=== PATIENT | male | born 1945 | race Caucasian/White ===

== ENCOUNTER → 2016-11-21 | Outpatient (CLI) | payer MEDICARE, BC ==
[~2016-11-21] MED LIST: ADVIL200 MG PO; ASPIR-LOW81 MG PO; ASPIR-LOX325 MG PO; ASPIRIN 32325 MG/TAB PO; ASPIRIN E.C. 8181 MG PO; BENICAR40 MG PO; BETAPACE 120MG120 MG PO; CARAFATE 1GM1 G PO; CARAFATE PO; CARDIZEM CD 18180 MG PO; CARTIA XT120 MG PO; CENTRUM SILVER1 TA1 PO; COUMADIN 5MG5 MG/TAB PO; COUMADIN 77.5 MG/TAB PO; DUO-KAPS1 CAP PO; ELIQUIS 5MG PO; LEVOTHYROXIN0.088 MG PO; LEVOXYL0.088 MG PO; LISINOPRIL; LISINOPRIL5 MG PO; MAREPA1200 MG PO; METOPROLOL25 MG PO; METOPROLOL50 MG PO; MULTAQ400 MG PO; MULTIPLE VITAMI1 CAP PO; NEXIUM 20MG20 MG PO; NEXIUM 40MG40 MG PO; NEXIUM40 MG PO; NITROSTAT0.4 MG/TAB SL; NORVASC2.5 MG PO; OMEGA-3 FISH1200 MG PO; OMEPRAZOLE20 MG PO; PRIL40; PRILOSEC PO; PRILOTC PO; SOTALOL80 MG PO; TIKOSYN0.5 MG PO; TIROSINT88 MCG PO; TOPROL XL 50MG50 MG PO; TOPROL XL25 MG PO; VITAMIN C500 MG PO; VITAMIN D1000 IU PO; VITAMIN E100 I3 PO; VITAMIN E1000 U/CAP PO; VITAMIN E200 I1 PO; WARFARIN SOD5 MG PO; ZESTRIL 5MG5 MG PO; [UNRECOGNIZED DRUG - OTHER] OP
== END ==
LOC: COL.CARD 11-20 09:00
DX: R03.0 Elevated blood-pressure reading, without diagnosis of hypertension (principal)

== ENCOUNTER → 2017-05-06 | Outpatient (CLI) | payer MEDICARE, BC | LOC: COL.RAD 09:45 | DX: I77.810 Thoracic aortic ectasia (principal); R91.1 Solitary pulmonary nodule; M89.8X8 Other specified disorders of bone, other site | CPT/HCPCS: J7050; Q9967 ==

== ENCOUNTER → 2017-06-12 | Outpatient (CLI) | payer MEDICARE, BC ==
[2017-06-12 11:17] LABS: CALCIUM 9.4 mg/dL (8.4-10.2); CREATININE, serum 1.35 mg/dL (0.66-1.25); POTASSIUM 4.2 mmol/L (3.4-5.0)
== END ==
LOC: COL.LAB 10:09
PROVIDERS: Internal Medicine Cardiovascular Disease
DX: I48.91 Unspecified atrial fibrillation (principal)

== ENCOUNTER → 2017-09-03 | Outpatient (CLI) | payer MEDICARE, BC | LOC: COL.RAD 08:52 | DX: M89.9 Disorder of bone, unspecified (principal) | CPT/HCPCS: A9503 ==

== ENCOUNTER → 2017-10-11 | Outpatient (CLI) | payer MEDICARE, BC ==
[2017-10-11 12:25] LABS: CREATININE, serum 1.29 mg/dL (0.66-1.25); POTASSIUM 4.2 mmol/L (3.4-5.0)
== END ==
LOC: COL.LAB 11:50
PROVIDERS: Internal Medicine Cardiovascular Disease
DX: I48.91 Unspecified atrial fibrillation (principal)

== ENCOUNTER → 2018-06-24 | Outpatient (CLI) | payer MEDICARE, BC | LOC: COL.RAD 09:31 | DX: M54.9 Dorsalgia, unspecified (principal) | CPT/HCPCS: A9503 ==

== ENCOUNTER 2020-09-16 06:43 | Day surgery (SDC) | payer MEDICARE, BC ==
[~2020-09-16] VITALS: Ht 181.6 cm; Wt 78.7 kg
[2020-09-16 07:23] VITALS: BP 179/110; PULSE 77; TEMP 97.5
[2020-09-16] MEDS ORDERED: BYSTOLIC2.5 MG PO (07:33)
[2020-09-16] MEDS ORDERED: COZAAR 25MG25 MG/TAB PO (07:33)
[2020-09-16] MEDS ORDERED: ASPIRIN E.C. 8181 MG PO (07:34)
[2020-09-16] MEDS ORDERED: PROTONIX20 MG PO (07:35)
[2020-09-16] MEDS ORDERED: EYE MULTIVITAM1 EAC1 PO (07:37)
[2020-09-16] MEDS ORDERED: GLUCOSAMINE & C1 TAB PO (07:38)
--- NOTE | 2020-09-16 07:41 | NUR ---
TO [facility] 2 AT 0655- CALL LIGHT IN REACH
[2020-09-16 08:35] VITALS: BP 126/80; PULSE 64; TEMP 97.5
--- NOTE | 2020-09-16 08:35 | NUR ---
pt to [facility] via cart from endo lab, walked to chair, gait stable, in room, call light in reach. No c/o
[2020-09-16 08:50] VITALS: BP 132/100; PULSE 66
[2020-09-16 09:10] VITALS: BP 140/99; PULSE 61
--- NOTE | 2020-09-16 09:10 | NUR ---
in earlier to see pt, IV dc'd intact. reviewed discharge inst. with pt on activity, precautions and followup with verbal understanding.
--- NOTE | 2020-09-16 09:20 | NUR ---
pt up in room dressed, no c/o, discharged via w/c to car with
== END 2020-09-16 09:20 | disposition home or self-care (01) ==
LOC: SDCO 06:43
DX: Z12.11 Encounter for screening for malignant neoplasm of colon (principal); K62.1 Rectal polyp; K57.30 Diverticulosis of large intestine without perforation or abscess without bleeding; Z90.79 Acquired absence of other genital organ(s); I10 Essential (primary) hypertension; I48.91 Unspecified atrial fibrillation; K21.9 Gastro-esophageal reflux disease without esophagitis; Z87.891 Personal history of nicotine dependence; Z85.828 Personal history of other malignant neoplasm of skin; Z20.822 Contact with and (suspected) exposure to COVID-19; Z85.46 Personal history of malignant neoplasm of prostate
CPT/HCPCS: J0360; J2704; J7030

== ENCOUNTER → 2020-10-04 | Outpatient (CLI) | payer MEDICARE, BC ==
[~2020-10-04] MED LIST changes: +BYSTOLIC2.5 MG PO; +COZAAR 25MG25 MG/TAB PO; +EYE MULTIVITAM1 EAC1 PO; +GLUCOSAMINE & C1 TAB PO; +PROTONIX20 MG PO
== END ==
LOC: COL.RAD 12:13
DX: E04.1 Nontoxic single thyroid nodule (principal)

== ENCOUNTER → 2020-11-09 | Outpatient (CLI) | payer MEDICARE, BC | LOC: COL.LAB 08:39 | DX: N28.89 Other specified disorders of kidney and ureter (principal) ==